=== PATIENT | female | born 1990 | race Caucasian/White ===

== ENCOUNTER 2017-06-29 16:23 | Emergency (ER) | payer OTHER ==
[2017-06-29 16:23] VITALS: BMI 22.2
[2017-06-29 16:36] VITALS: TEMP 98.4; O2SAT 100
[2017-06-29 17:13] LABS: URINE BILIRUBIN NEGATIVE (NEGATIVE); URINE BLOOD NEGATIVE (NEGATIVE); URINE GLUCOSE (UA) NEGATIVE (NEGATIVE); URINE LEUKOCYTE ESTERASE NEGATIVE Leu/uL (NEGATIVE); URINE NITRATE NEGATIVE (NEGATIVE); URINE PROTEIN 30 mg/dL (<30 mg/dL); URINE UROBILINOGEN 0.2 E.U./dL (<1 E.U./dL)
[2017-06-29 17:22] LABS: URINE APPEARANCE CLEAR (CLEAR); URINE COLOR YELLOW (YELLOW)
[2017-06-29 17:26] LABS: URINE BACTERIA MOD (NEG); URINE RBC 0 - 2 /hpf (0-2); URINE WBC 0 - 2 /hpf (0-6)
--- NOTE | 2017-06-29 17:30 | ED PDOC ---
Arrival/HPI - General Chief Complaint: Abdominal Pain Time Seen by Provider: 06/29/17 16:24 Historian: Patient - History of Present Illness Narrative History of Present Illness (Text): 06/29/17 17:27 26yo female with no PMHx who present with complaint of Left pelvic pain x 3days. States pain is constant. Her LMP was last week. Denies nausea, vomiting, diarrhea, constipation, fever, chills, urinary symptoms, any other complaint. Past Medical History - Provider Review Nursing Documentation Reviewed: Yes - Infectious Disease Hx of Infectious Diseases: None - Hematological/Oncological Hx Anemia: Yes (CORRINA) Hx Blood Transfusions: No Hx Blood Transfusion Reaction: No - Musculoskeletal/Rheumatological Hx Falls: No - Genitourinary/Gynecological Other/Comment: ruptured ovarian cyst - Psychiatric Hx Depression: No Hx Emotional Abuse: No Hx Physical Abuse: No Hx Substance Use: No - Surgical History Other/Comment: ovarian cyst - Anesthesia Hx Anesthesia: Yes Hx Anesthesia Reactions: No Hx Malignant Hyperthermia: No - Suicidal Assessment Feels Threatened In Home Enviroment: No Family/Social History - Physician Review Nursing Documentation Reviewed: Yes Family/Social History: Unknown Family HX Smoking Status: Never Smoked Hx Alcohol Use: Yes Frequency of alcohol use: Socially Hx Substance Use: No Hx Substance Use Treatment: No Allergies/Home Meds Allergies/Adverse Reactions: Allergies No Known Allergies Allergy (Verified 12/03/11 04:35) Review of Systems - Physician Review All systems were reviewed & negative as marked: Yes - Review of Systems Constitutional: Normal Eyes: Normal ENT: Normal Respiratory: Normal Cardiovascular: Normal Gastrointestinal: Abdominal Pain. absent: Constipation, Diarrhea, Nausea, Vomiting, Hematochezia, Hematemesis Genitourinary Female: Normal Musculoskeletal: Normal Skin: Normal Neurological: Normal Endocrine: Normal Hemo/Lymphatic: Normal Psychiatric: Normal Physical Exam Vital Signs Reviewed: Yes Vital Signs Temp Pulse Resp BP Pulse Ox 06/29/17 18:43 72 16 105/70 100 06/29/17 18:00 69 18 109/71 100 06/29/17 16:34 98.4 F 76 18 107/73 100 Temperature: Afebrile Blood Pressure: Normal Pulse: Regular Respiratory Rate: Normal Appearance: Positive for: Well-Appearing, Non-Toxic, Comfortable Pain Distress: None Mental Status: Positive for: Alert and Oriented X 3 - Systems Exam Head: Present: Atraumatic, Normocephalic Pupils: Present: PERRL Extroacular Muscles: Present: EOMI Conjunctiva: Present: Normal Mouth: Present: Moist Mucous Membranes Neck: Present: Normal Range of Motion Respiratory/Chest: Present: Clear to Auscultation, Good Air Exchange. No: Respiratory Distress, Accessory Muscle Use Cardiovascular: Present: Regular Rate and Rhythm, Normal S1, S2. No: Murmurs Abdomen: Present: Tenderness (Left pelvic tenderness), Normal Bowel Sounds, Other (soft). No: Distention, Peritoneal Signs, Rebound, Guarding, McBurney's Point Tender, Rovsing's Sign Present Back: Present: Normal Inspection Upper Extremity: Present: Normal Inspection. No: Cyanosis, Edema Lower Extremity: Present: Normal Inspection. No: Edema Neurological: Present: GCS=15, CN II-XII Intact, Speech Normal Skin: Present: Warm, Dry, Normal Color. No: Rashes Psychiatric: Present: Alert, Oriented x 3, Normal Insight, Normal Concentration Medical Decision Making ED Course and Treatment: 06/29/17 18:45 Pt in ED with stated history. She denies NVDC. She had mild left pelvic tenderness. Her pain improved with Ibuprofen 600mg in ED. Transvaginal US - B/L follicles/cyst Result was DW the pt and she will be DC home with ibuprofen. Referred to a INTERNAL MEDICINE VETERINARY TECHNICIAN. - Lab Interpretations Lab Results: Lab Results 06/29/17 17:00: Urine Color Yellow, Urine Appearance Clear, Urine pH 7.0, Ur Specific [place] 1.015, Urine Protein 30 H, Urine Glucose (UA) Negative, Urine Ketones Negative, Urine Blood Negative, Urine Nitrate Negative, Urine Bilirubin Negative, Urine Urobilinogen 0.2, Ur Leukocyte Esterase Negative, Urine RBC 0 - 2, Urine WBC 0 - 2, Ur Epithelial Cells 10 - 12, Urine Bacteria Mod - RAD Interpretation Radiology Orders: 06/29/17 16:56 TRANSVAGINAL [US] Stat - Medication Orders Current Medication Orders: Discontinued Medications Ibuprofen (Motrin Tab) 600 mg PO STAT STA Stop: 06/29/17 16:58 Last Admin: 06/29/17 17:18 Dose: 600 mg MAR Pain/Vitals Document 06/29/17 17:18 RG (Rec: 06/29/17 17:21 RG [id number]) Pain Reassessment Is This A Pain ReAssessment? Yes Sleep Is patient sleeping during reassessment? No Presence of Pain Presence of Pain Yes Pain Scale Used Pain Scale Used Numeric Location Pain Location Body Site Abdomen Description Constant Intensity 8 Pain Behavior Crying Re-Assess: MAR Pain/Vitals Document 06/29/17 18:18 RG (Rec: 06/29/17 18:45 RG [id number]) Pain Reassessment Is This A Pain ReAssessment? Yes Sleep Is patient sleeping during reassessment? No Presence of Pain Presence of Pain No Disposition/Present on Arrival - Present on Arrival Any Indicators Present on Arrival: No History of DVT/PE: No History of Uncontrolled Diabetes: No Urinary Catheter: No History of Decub. Ulcer: No History Surgical Site Infection Following: None - Disposition Have Diagnosis and Disposition been Completed?: Yes Diagnosis: Cyst of ovary, Pelvic pain Disposition: HOME/ ROUTINE Disposition Time: 19:00 Patient Plan: Discharge Condition: STABLE Discharge Instructions (ExitCare): Pelvic Pain in Women (ED) Additional Instructions: Follow up with your doctor/INTERNAL MEDICINE VETERINARY TECHNICIAN Return to ED for any new or worsening symptoms Prescriptions: Ibuprofen [Motrin Tab] 600 mg PO Q6 #20 tab Referrals: PCP,NO [Primary Care Provider] - Follow up with primary Al Gray MD [Non-Staff] - Follow up with primary [facility] [Outside] - Follow up with primary Forms: [employer] (Romanian)
[2017-06-29 18:43] VITALS: BP 105/70; PULSE 72; RESP 16
--- NOTE | 2017-06-29 18:44 | US ---
HISTORY: Left pelvic pain COMPARISON: None. TECHNIQUE: Transvaginal pelvic ultrasound FINDINGS: UTERUS: Measures 8.1 x 3.3 x 4.2 cm. Anteverted. ENDOMETRIUM: Measures 4 mm in diameter. CERVIX: No cervical abnormality identified. RIGHT OVARY: Measures 3.7 x 2.1 x 3.9 cm. Blood flow is demonstrated. 1.3 cm and 0.9 cm follicles/ cysts. LEFT OVARY: Measures 2.5 x 2.2 x 2.7 cm. Blood flow is demonstrated. 1.1 cm follicle/ cyst. FREE FLUID: No significant free fluid noted. OTHER FINDINGS: None. IMPRESSION: Bilateral ovarian follicles/cysts.
== END 2017-06-29 19:14 | disposition home or self-care (01) ==
LOC: ED 16:23
DX: N83.202 Unspecified ovarian cyst, left side (principal); N83.201 Unspecified ovarian cyst, right side; R10.2 Pelvic and perineal pain

== ENCOUNTER 2017-10-08 20:21 | Emergency (ER) | payer SELFPAY ==
--- NOTE | 2017-10-08 21:11 | ED PDOC ---
Arrival/HPI - General Chief Complaint: Abdominal Pain Time Seen by Provider: 10/08/17 21:03 Historian: Patient - History of Present Illness Narrative History of Present Illness (Text): 10/08/17 21:11 Patient is a 26 year old female who presents to the Emergency department complaining of urinary frequency and burning sensation on urination. Patient has no history of back pain and denies any vaginal discharge. Patient also denies any fever, chills, nausea, or vomiting. Symptom Onset: Sudden Symptom Course: Unchanged Quality: Burning Context: Home Past Medical History - Provider Review Nursing Documentation Reviewed: Yes - Infectious Disease Hx of Infectious Diseases: None - Cardiac Hx Cardiac Disorders: No - Pulmonary Hx Respiratory Disorders: No - Neurological Hx Neurological Disorder: No - HEENT Hx HEENT Disorder: No - Renal Hx Renal Disorder: No - Endocrine/Metabolic Hx Endocrine Disorders: No - Hematological/Oncological Hx Blood Disorders: Yes Hx Anemia: Yes (CORRINA) - Integumentary Hx Dermatological Disorder: No - Musculoskeletal/Rheumatological Hx Musculoskeletal Disorders: No - Gastrointestinal Hx Gastrointestinal Disorders: No - Genitourinary/Gynecological Hx Genitourinary Disorders: Yes Other/Comment: ruptured ovarian cyst - Psychiatric Hx Psychophysiologic Disorder: No Hx Substance Use: No - Surgical History Other/Comment: ovarian cyst - Anesthesia Hx Anesthesia: Yes Hx Anesthesia Reactions: No Hx Malignant Hyperthermia: No - Suicidal Assessment Feels Threatened In Home Enviroment: No Family/Social History - Physician Review Nursing Documentation Reviewed: Yes Family/Social History: No Known Family HX Smoking Status: Current Some Days Smoker Hx Alcohol Use: No Hx Substance Use: No Hx Substance Use Treatment: No Allergies/Home Meds Allergies/Adverse Reactions: Allergies No Known Allergies Allergy (Verified 10/08/17 20:50) Review of Systems - Physician Review All systems were reviewed & negative as marked: Yes - Review of Systems Constitutional: absent: Fevers, Night Sweats Gastrointestinal: absent: Nausea, Vomiting Genitourinary Female: Dysuria, Frequency Physical Exam Vital Signs Reviewed: Yes Vital Signs Temp Pulse Resp BP Pulse Ox 10/08/17 20:50 98.6 F 86 17 111/71 96 Temperature: Afebrile Blood Pressure: Normal Pulse: Regular Respiratory Rate: Normal Appearance: Positive for: Well-Appearing Pain Distress: None Mental Status: Positive for: Alert and Oriented X 3 - Systems Exam Head: Present: Atraumatic, Normocephalic Pupils: Present: PERRL Extroacular Muscles: Present: EOMI Conjunctiva: Present: Normal Mouth: Present: Moist Mucous Membranes Neck: Present: Normal Range of Motion Respiratory/Chest: Present: Clear to Auscultation, Good Air Exchange. No: Respiratory Distress, Accessory Muscle Use Cardiovascular: Present: Regular Rate and Rhythm, Normal S1, S2. No: Murmurs Abdomen: Present: Normal Bowel Sounds. No: Tenderness, Distention, Peritoneal Signs Back: Present: Normal Inspection. No: CVA Tenderness Upper Extremity: Present: Normal Inspection. No: Cyanosis, Edema Lower Extremity: Present: Normal Inspection. No: Edema Neurological: Present: GCS=15, CN II-XII Intact, Speech Normal Skin: Present: Warm, Dry, Normal Color. No: Rashes Psychiatric: Present: Alert, Oriented x 3, Normal Insight, Normal Concentration Medical Decision Making ED Course and Treatment: 10/08/17 21:11 Impression: Patient is a 26 year old female with dysuria and increased urination frequency. Differential Diagnosis included but are not limited to: cystitis vs pyelonephritis vs PID Plan: --Urine culture --urinalysis -- Reassess and disposition Prior Visits: Notes and results from previous visits were reviewed. Patient was last seen in the emergency department on 06/29/17 complaining of abdominal pain. Progress Notes: 10/08/17 23:28 Reevaluation: On reevaluation the patient feels better and is in no acute distress. I have discussed the results and plan with the patient, who expresses understanding. Patient given the opportunity to ask question, all questions were answered and there is agreement with the plan to discharge the patient home with prescription for Keflex and Pyridium. Patient is stable for discharge. Patient was instructed to follow up with physician/clinic in 1-2 days or return if symptoms persist/worsen or new concerning symptoms arise. - Lab Interpretations Lab Results: Lab Results 10/08/17 21:15: Urine Color Yellow, Urine Appearance Slight-cloudy, Urine pH 7.5 , Ur Specific [place] 1.025, Urine Protein 30 H, Urine Glucose (UA) Negative, Urine Ketones Negative, Urine Blood Moderate H, Urine Nitrate Negative, Urine Bilirubin Negative, Urine Urobilinogen 0.2, Ur Leukocyte Esterase Moderate H, Urine RBC 0 - 2, Urine WBC 25 - 30, Ur Epithelial Cells 0 - 2, Urine Bacteria Trace, Urine HCG, Qual Negative - Medication Orders Current Medication Orders: Discontinued Medications Cephalexin Monohydrate (Keflex) 500 mg PO ONCE STA PRN Reason: Protocol Stop: 10/08/17 23:23 Last Admin: 10/08/17 23:46 Dose: 500 mg Phenazopyridine HCl (Pyridium) 200 mg PO STAT STA Stop: 10/08/17 23:20 Last Admin: 10/08/17 23:46 Dose: 200 mg - Scribe Statement The provider has reviewed the documentation as recorded by the Davide Rubio Provider Scribe Attestation: All medical record entries made by the Scribe were at my direction and personally dictated by me. I have reviewed the chart and agree that the record accurately reflects my personal performance of the history, physical exam, medical decision making, and the department course for this patient. I have also personally directed, reviewed, and agree with the discharge instructions and disposition. Disposition/Present on Arrival - Present on Arrival Any Indicators Present on Arrival: No History of DVT/PE: No History of Uncontrolled Diabetes: No Urinary Catheter: No History of Decub. Ulcer: No History Surgical Site Infection Following: None - Disposition Have Diagnosis and Disposition been Completed?: Yes Diagnosis: UTI (urinary tract infection) Disposition: HOME/ ROUTINE Disposition Time: 23:17 Patient Plan: Discharge Patient Problems: Current Active Problems Problem Status Onset UTI (urinary tract infection) Acute Condition: GOOD Discharge Instructions (ExitCare): Urinary Tract Infection, Adult (DC) Additional Instructions: Drink plenty of liquids/take meds as prescribed/follow up with your doctor this week Prescriptions: Cyclobenzaprine [Cyclobenzaprine HCl] 10 mg PO TID PRN #15 tab PRN Reason: Muscle Spasm Cephalexin [cephalexin] 500 mg PO BID #14 cap Referrals: PCP,NO [Primary Care Provider] - Follow up with primary Forms: [employer] (Kyrgyz)
[2017-10-08 21:15] VITALS: TEMP 98.6; BMI 21.4
[2017-10-08 21:27] LABS: PH,URINE 7.5 (4.7-8.0); URINE BILIRUBIN NEGATIVE (NEGATIVE); URINE BLOOD MODERATE (NEGATIVE); URINE GLUCOSE (UA) NEGATIVE (NEGATIVE); URINE LEUKOCYTE ESTERASE MODERATE Leu/uL (NEGATIVE); URINE PROTEIN 30 mg/dL (<30 mg/dL); URINE UROBILINOGEN 0.2 E.U./dL (<1 E.U./dL)
[2017-10-08 21:28] LABS: URINE APPEARANCE SLIGHT-CLOUDY (CLEAR); URINE COLOR YELLOW (YELLOW)
[2017-10-08 21:33] LABS: HCG,QUALITATIVE URINE NEGATIVE (NEGATIVE)
[2017-10-08 21:44] LABS: URINE BACTERIA TRACE (NEG); URINE EPITHELIAL CELLS 0 - 2 /hpf (0-5); URINE RBC 0 - 2 /hpf (0-2); URINE WBC 25 - 30 /hpf (0-6)
[2017-10-09 02:33] VITALS: BP 112/71; PULSE 76; RESP 16; O2SAT 99
== END 2017-10-08 23:30 | disposition home or self-care (01) ==
LOC: ED 20:21
DX: N39.0 Urinary tract infection, site not specified (principal)